=== PATIENT | male | born 1980 | race Caucasian/White ===

== ENCOUNTER 2020-09-03 09:41 | Emergency (ER) | payer OTHER ==
[~2020-09-03 09:41] MED LIST: ANUSOL HC SUPP1 SUPP PR; ASPIRIN CHEWABL81 MG PO; COLACE 100MG C100 MG PO; FLAGYL500 MG PO; LITHIUM CARBON300 M3 PO; NITROSTAT0.4 MG SL; NORCO 5-325 TA1 EACH PO; ONDANSETRON ODT4 MG PO; PROTONIX 40 MG40 M1 PO; PROTONIX40 MG PO; RECTICARE30 GM TP; XYLOCAINE 5% OI35 GM TOP; ZOFRAN4 MG PO
[2020-09-03 10:04] LABS: HEMOGLOBIN 16.8 gm/dl (14.0-17.5); RED BLOOD COUNT 5.37 M/UL (4.20-5.50); WHITE BLOOD COUNT 8.8 K/UL (4.5-11.0)
[2020-09-03 10:25] LABS: BUN/CREATININE RATIO 18 (0-10)
[2020-09-03] MEDS ORDERED: BENTYL 20MG TAB20 MG PO (10:55)
[2020-09-03] MEDS ORDERED: ZOFRAN4 MG PO (10:55)
== END 2020-09-03 11:05 | disposition home or self-care (01) ==
LOC: ER1 09:41
PROVIDERS: Physician Assistant
DX: R10.13 Epigastric pain (principal); R11.2 Nausea with vomiting, unspecified; R19.7 Diarrhea, unspecified; Z90.49 Acquired absence of other specified parts of digestive tract; Z90.89 Acquired absence of other organs; Z88.1 Allergy status to other antibiotic agents; F17.290 Nicotine dependence, other tobacco product, uncomplicated
CPT/HCPCS: 80053; 83690; 85025; 96374; 99284; J2405; J7030

== ENCOUNTER 2020-12-09 22:22 | Emergency (ER) | payer OTHER ==
[~2020-12-09 22:22] MED LIST changes: +BENTYL 20MG TAB20 MG PO
== END 2020-12-09 23:06 | disposition left against medical advice (07) ==
LOC: ER1 22:22
DX: Z53.21 Procedure and treatment not carried out due to patient leaving prior to being seen by health care provider (principal)
CPT/HCPCS: 93005

== ENCOUNTER 2021-03-17 16:01 | Emergency (ER) | payer OTHER ==
[2021-03-17 16:42] LABS: HEMOGLOBIN 16.9 gm/dl (14.0-17.5); RED BLOOD COUNT 5.46 M/UL (4.20-5.50); WHITE BLOOD COUNT 12.2 K/UL (4.5-11.0)
[2021-03-17 17:09] LABS: BUN/CREATININE RATIO 17 (0-10)
== END 2021-03-17 19:00 | disposition home or self-care (01) ==
LOC: ER1 16:01
PROVIDERS: Emergency Medicine; Family Medicine
DX: R10.9 Unspecified abdominal pain (principal); R11.2 Nausea with vomiting, unspecified; Z90.89 Acquired absence of other organs
CPT/HCPCS: 80053; 80307; 81001; 83690; 85025; 96374; 96375; 99284; C9113; J1885; J2270; J2405; J2765; Q9967

== ENCOUNTER 2021-05-12 19:28 | Emergency (ER) | payer OTHER ==
[2021-05-12 20:53] LABS: HEMOGLOBIN 14.3 gm/dl (14.0-17.5); RED BLOOD COUNT 4.67 M/UL (4.20-5.50); WHITE BLOOD COUNT 8.6 K/UL (4.5-11.0)
[2021-05-12 21:37] LABS: BUN/CREATININE RATIO 15 (0-10)
== END 2021-05-12 22:45 | disposition home or self-care (01) ==
LOC: ER1 19:28
PROVIDERS: Physician Assistant
DX: R07.9 Chest pain, unspecified (principal); F17.210 Nicotine dependence, cigarettes, uncomplicated; Z88.1 Allergy status to other antibiotic agents
CPT/HCPCS: 71045; 80053; 82550; 82553; 83874; 84484; 85025; 93005; 99285

== ENCOUNTER 2021-09-12 21:00 | Emergency (ER) | payer OTHER ==
[2021-09-12 22:01] LABS: HEMOGLOBIN 14.2 gm/dl (14.0-17.5); RED BLOOD COUNT 4.63 M/UL (4.20-5.50); WHITE BLOOD COUNT 8.6 K/UL (4.5-11.0)
[2021-09-12 22:24] LABS: BUN/CREATININE RATIO 14 (0-10)
[2021-09-13] MEDS ORDERED: LEVOFLOXACIN500 MG PO (00:11)
[2021-09-13] MEDS ORDERED: IBU600 MG PO (00:12)
== END 2021-09-13 00:19 | disposition home or self-care (01) ==
LOC: ER1 21:00
PROVIDERS: Student in an Organized Health Care Education/Training Program
DX: N45.2 Orchitis (principal); F17.210 Nicotine dependence, cigarettes, uncomplicated; Z88.1 Allergy status to other antibiotic agents
CPT/HCPCS: 76870; 80053; 81001; 85025; 96374; 99284; J1885

== ENCOUNTER 2021-09-21 11:15 | Emergency (ER) | payer OTHER ==
[~2021-09-21 11:15] MED LIST changes: +IBU600 MG PO; +LEVOFLOXACIN500 MG PO
[2021-09-21 12:04] LABS: HEMOGLOBIN 17.7 gm/dl (14.0-17.5); RED BLOOD COUNT 5.71 M/UL (4.20-5.50); WHITE BLOOD COUNT 13.4 K/UL (4.5-11.0)
[2021-09-21 14:24] LABS: BUN/CREATININE RATIO 23 (0-10)
[2021-09-21] MEDS ORDERED: ZOFRAN 4 MG TAB4 MG PO (14:48)
== END 2021-09-21 15:22 | disposition home or self-care (01) ==
LOC: ER1 11:15
PROVIDERS: Emergency Medicine
DX: R10.84 Generalized abdominal pain (principal); R11.2 Nausea with vomiting, unspecified
CPT/HCPCS: 80053; 83690; 83735; 85025; 96374; 96375; 99284; J2270; J2405